=== PATIENT | female | born 1990 | race African-American/Black ===

== ENCOUNTER 2017-08-21 23:03 | Inpatient (IN) | payer OTHER ==
[~2017-08-21] VITALS: Ht 170.2 cm; Wt 71.7 kg
[2017-08-21] MEDS ORDERED: Sodium Chloride 500ML 500 ML IV ONE (23:46)
[2017-08-22] MEDS ORDERED: Morphine Sulfate 4mg/ml Inj IVP ONE
[2017-08-22 00:10] VITALS: BP 131/90
[2017-08-22 00:25] LABS: BASOPHILS % (AUTO) 1.4 % (0.0-2.0); EOSINOPHILS % (AUTO) 7.7 % (0.0-3.0); HEMATOCRIT 42.1 % (37.0-47.0); HEMOGLOBIN 14.2 G/DL (12.0-16.0); LYMPHOCYTES % (AUTO) 22.1 % (20.0-45.0); MEAN CORPUSCULAR VOLUME 87 FL (80-99); MONOCYTES % (AUTO) 7.2 % (1.0-10.0); NEUTROPHILS % (AUTO) 61.5 % (45.0-75.0); PLATELET COUNT 420 K/UL (150-450); RED BLOOD COUNT 4.82 M/UL (4.20-5.40); RED CELL DISTRIBUTION WIDTH 12.9 % (11.6-14.8)
[2017-08-22 00:27] LABS: BILIRUBIN, URINE NEGATIVE (NEGATIVE); COLOR,URINE PALE YELLOW; GLUCOSE, URINE (UA) NEGATIVE (NEGATIVE); KETONES,URINE NEGATIVE (NEGATIVE); LEUKOCYTE ESTERASE ,URINE 1+ (NEGATIVE); NITRITE,URINE NEGATIVE (NEGATIVE); PH,URINE 6 (4.5-8.0); PROTEIN,URINE 3+ (NEGATIVE); UROBILINOGEN,URINE 1 MG/DL (0.0-1.0)
[2017-08-22 00:38] LABS: ANION GAP 7 mmol/L (5-15); BLOOD UREA NITROGEN 5 mg/dL (7-18); CALCIUM 9.9 MG/DL (8.5-10.1); CARBON DIOXIDE 28 MMOL/L (21-32); CHLORIDE 100 MMOL/L (98-107); CREATININE 0.7 MG/DL (0.55-1.30); POTASSIUM 3.5 MMOL/L (3.5-5.1); SODIUM 135 MMOL/L (136-145)
[2017-08-22 00:42] LABS: APPEARANCE,URINE SLIGHTLY CLOUDY
[2017-08-22 00:43] LABS: ALANINE AMINOTRANSFERASE 14 U/L (12-78); ALBUMIN 4.1 G/DL (3.4-5.0); ALKALINE PHOSPHATASE 92 U/L (46-116); ASPARTATE AMINO TRANSFERASE 12 U/L (15-37); BILIRUBIN,TOTAL 0.2 MG/DL (0.2-1.0)
[2017-08-22 01:10] LABS: INR 0.9 (0.9-1.1)
[2017-08-22 01:58] VITALS: BP 125/86
[2017-08-22 04:00] VITALS: BP 119/74
--- NOTE | 2017-08-22 04:01 | Emergency Room Report ---
History of Present Illness General Chief Complaint: Abdominal Pain Source: Patient Present Illness HPI 27-year-old female presents ED for evaluation. Patient presenting with lower abdominal pain which started yesterday. Throbbing, 8/10, nonradiating. Patient states her period started a few days ago. Denies nausea or vomiting. Denies fevers chills. Denies any vaginal bleeding. Mother aggravating relieving factors. Denies any other associated symptoms Allergies: Coded Allergies: No Known Allergies (Unverified , 08/21/17) Patient History Past Medical History: none Past Surgical History: none Pertinent Family History: none Social History: Denies: smoking, alcohol use, drug use Last Menstrual Period: on period Now: No : 3 Immunizations: UTD Reviewed Nursing Documentation: PMH: Agreed, PSxH: Agreed Review of Systems All Other Systems: negative except mentioned in HPI Physical Exam Vital Signs Date Time Temp Pulse Resp B/P (MAP) Pulse Ox O2 Delivery O2 Flow Rate FiO2 08/21/17 23:25 98.0 94 18 131/87 98 Room Air 98.1 Sp02 EP Interpretation: reviewed, normal General Appearance: alert, GCS 15, non-toxic, mild distress Head: normocephalic, atraumatic Eyes: bilateral eye normal inspection, bilateral eye PERRL ENT: hearing grossly normal, normal pharynx, no angioedema, normal voice Neck: full range of motion, supple/symm/no masses Respiratory: chest non-tender, lungs clear, normal breath sounds, speaking full sentences Cardiovascular #1: regular rate, rhythm, no edema Cardiovascular #2: 2+ carotid (R), 2+ carotid (L), 2+ radial (R), 2+ radial (L) , 2+ dorsalis pedis (R), 2+ dorsalis pedis (L) Gastrointestinal: normal bowel sounds, soft, non-distended, no guarding, no rebound, tenderness Rectal: deferred Genitourinary: normal inspection, no CVA tenderness Musculoskeletal: back normal, gait/station normal, normal range of motion, non- tender Neurologic: alert, oriented x3, responsive, motor strength/tone normal, sensory intact, speech normal Psychiatric: judgement/insight normal, memory normal, mood/affect normal, no suicidal/homicidal ideation Reflexes: 3+ bicep (R), 3+ bicep (L), 3+ tricep (R), 3+ tricep (L), 3+ knee (R) , 3+ knee (L) Skin: normal color, no rash, warm/dry, well hydrated Lymphatic: no adenopathy Medical Decision Making Diagnostic Impression: Primary Impression: Ruptured ectopic ER Course Hospital Course 27-year-old female presents to ED with lower abdominal pain Differential diagnoses include: gastrits, gastroenterits, ectopic , ovarian torsion/cyst, UTI Clinical course Patient placed on stretcher in ED. After initial history and physical I ordered labs, pain meds, ultrasound. Labs-no leukocytosis, hb/hct stable electrolytes okay, beta hCG positive Pelvic ultrasound- no IUP, echogenic free fluid in pelvis near L adnexa. likely hemoperitoneum BHCG > 700 Patient made NPO. Discussed with OBGYN Dr Yoder, agreed to consult admitted to Dr Heredia Diagnosis - ruptured ectopic admitted in serious condition Labs Test 08/21/17 23:34 08/22/17 00:10 Urine Color Pale yellow Urine Appearance Slightly cloudy Urine pH 6 (4.5-8.0) Urine Specific [place] 1.025 (1.005-1.035) Urine Protein 3+ (NEGATIVE) Urine Glucose (UA) Negative (NEGATIVE) Urine Ketones Negative (NEGATIVE) Urine Occult Blood 5+ (NEGATIVE) Urine Nitrite Negative (NEGATIVE) Urine Bilirubin Negative (NEGATIVE) Urine Urobilinogen 1 MG/DL (0.0-1.0) Urine Leukocyte Esterase 1+ (NEGATIVE) Urine RBC Tntc /HPF (0 - 2) Urine WBC 2-4 /HPF (0 - 2) Urine Squamous Epithelial Cells Many /LPF (NONE/OCC) Urine Bacteria Few /HPF (NONE) Urine HCG, Qualitative Positive White Blood Count 9.0 K/UL (4.8-10.8) Red Blood Count 4.82 M/UL (4.20-5.40) Hemoglobin 14.2 G/DL (12.0-16.0) Hematocrit 42.1 % (37.0-47.0) Mean Corpuscular Volume 87 FL (80-99) Mean Corpuscular Hemoglobin 29.4 PG (27.0-31.0) Mean Corpuscular Hemoglobin Concent 33.7 G/DL (32.0-36.0) Red Cell Distribution Width 12.9 % (11.6-14.8) Platelet Count 420 K/UL (150-450) Mean Platelet Volume 6.3 FL (6.5-10.1) Neutrophils (%) (Auto) 61.5 % (45.0-75.0) Lymphocytes (%) (Auto) 22.1 % (20.0-45.0) Monocytes (%) (Auto) 7.2 % (1.0-10.0) Eosinophils (%) (Auto) 7.7 % (0.0-3.0) Basophils (%) (Auto) 1.4 % (0.0-2.0) Prothrombin Time 9.6 SEC (9.30-11.50) Prothromb Time International Ratio 0.9 (0.9-1.1) Activated Partial Thromboplast Time 27 SEC (23-33) Sodium Level 135 MMOL/L (136-145) Potassium Level 3.5 MMOL/L (3.5-5.1) Chloride Level 100 MMOL/L (98-107) Carbon Dioxide Level 28 MMOL/L (21-32) Anion Gap 7 mmol/L (5-15) Blood Urea Nitrogen 5 mg/dL (7-18) Creatinine 0.7 MG/DL (0.55-1.30) Estimat Glomerular Filtration Rate > 60 mL/min (>60) Glucose Level 103 MG/DL (74-106) Calcium Level 9.9 MG/DL (8.5-10.1) Total Bilirubin 0.2 MG/DL (0.2-1.0) Aspartate Amino Transf (AST/SGOT) 12 U/L (15-37) Alanine Aminotransferase (ALT/SGPT) 14 U/L (12-78) Alkaline Phosphatase 92 U/L (46-116) Total Protein 8.4 G/DL (6.4-8.2) Albumin 4.1 G/DL (3.4-5.0) Globulin 4.3 g/dL Albumin/Globulin Ratio 1.0 (1.0-2.7) Lipase 102 U/L (73-393) Human Chorionic Gonadotropin, Quant 794 mIU/mL (1-6) CT/MRI/US Diagnostic Results CT/MRI/US Diagnostic Results : Imaging Test Ordered: Pelvic US Impression Echogenic free fluid in the pelvis, particularly at the left adnexa, is likely due to a small amount of hemoperitoneum. Findings may be due to ruptured left adnexal ectopic versus ruptured left ovarian hemorrhagic cyst. Last Vital Signs Date Time Temp Pulse Resp B/P (MAP) Pulse Ox O2 Delivery O2 Flow Rate FiO2 08/22/17 01:58 97.8 69 16 125/86 96 Room Air 97.8 Status: improved Disposition: ADMITTED INPATIENT Condition: Serious Scripts No Active Prescriptions or Reported Meds Referrals: [facility],REFERRING (PCP) PARTH ESTEVEZ M.D. Aug 22, 2017 04:01
[2017-08-22] MEDS ORDERED: Meperidine 50mg/ml Inj(FOR RIGORS ONLY) IM ONE (05:00)
[2017-08-22 06:00] VITALS: BP 107/72
[2017-08-22] MEDS: LR 1000ml 1,000 ML IV SCH ×2 (06:43→14:00)
[2017-08-22 07:07] LABS: EOSINOPHILS % (AUTO) 7.5 % (0.0-3.0); HEMATOCRIT 36.9 % (37.0-47.0); HEMOGLOBIN 12.6 G/DL (12.0-16.0); LYMPHOCYTES % (AUTO) 20.4 % (20.0-45.0); MEAN CORPUSCULAR VOLUME 87 FL (80-99); MONOCYTES % (AUTO) 7.2 % (1.0-10.0); NEUTROPHILS % (AUTO) 63.9 % (45.0-75.0); PLATELET COUNT 379 K/UL (150-450); RED BLOOD COUNT 4.23 M/UL (4.20-5.40); RED CELL DISTRIBUTION WIDTH 12.9 % (11.6-14.8); WHITE BLOOD COUNT 10.1 K/UL (4.8-10.8)
[2017-08-22 08:00] VITALS: BP 114/71
[2017-08-22] MEDS ORDERED: Hydromorphone 0.5mg/0.5ml inj IVP PRN (08:30)
[2017-08-22] MEDS ORDERED: NS w/KCl 20mEq 1,000 ML IV SCH (09:00)
--- NOTE | 2017-08-22 10:18 | Diagnostic Imaging Report ---
Indication: Pain, positive test Technique: Transabdominal and transvaginal images Comparison: none Findings: The uterus is retroverted, measures 6.2 cm length by 4.1 cm AP. The endometrium measures 6 mm thick. No myometrial abnormality. The right ovary measures 3.5 cm in length. No right adnexal mass demonstrated. The left ovary is not optimally visualized, appears to measure approximately 4 cm in length. Within the cul-de-sac and adjacent to the left ovary, there is free fluid with low-level internal echoes. Questionable mass versus hematoma extends off of the left ovary Impression: No intrauterine visualized. Differential considerations include very early and therefore not yet visible , spontaneous , ectopic . Correlate with clinical findings and serial beta hCGs, consider follow-up sonography as indicated Free fluid with low level internal echoes in the cul-de-sac and left adnexal region, likely bloody. Possibilities include recent cyst rupture with hemorrhage, ruptured ectopic . Correlate with clinical findings. Suboptimal visualization of the left ovary. Possible left ovarian mass versus hematoma. Recommend follow-up sonography after resolution of acute symptoms. This agrees with the preliminary interpretation provided overnight by [facility] teleradiology service. Findings also reviewed in person with Dr. Paresh claros
[2017-08-22 12:00] VITALS: BP 113/69
[2017-08-22 12:28] LABS: BASOPHILS % (AUTO) 1.1 % (0.0-2.0); EOSINOPHILS % (AUTO) 7.1 % (0.0-3.0); HEMATOCRIT 41.3 % (37.0-47.0); HEMOGLOBIN 13.8 G/DL (12.0-16.0); LYMPHOCYTES % (AUTO) 19.2 % (20.0-45.0); MEAN CORPUSCULAR VOLUME 88 FL (80-99); MONOCYTES % (AUTO) 6.9 % (1.0-10.0); NEUTROPHILS % (AUTO) 65.7 % (45.0-75.0); PLATELET COUNT 384 K/UL (150-450); RED BLOOD COUNT 4.68 M/UL (4.20-5.40); RED CELL DISTRIBUTION WIDTH 13.4 % (11.6-14.8); WHITE BLOOD COUNT 9.2 K/UL (4.8-10.8)
--- NOTE | 2017-08-22 16:01 | History and Physical Report ---
DATE OF ADMISSION: 08/22/2017 HISTORY OF PRESENT ILLNESS: This is a 27-year-old female, who came to the ER for lower abdominal pain. She states her period started a few days ago. She denied nausea, vomiting, fever, or chills. She denies any vaginal bleeding. She was seen and worked up in the emergency room and noted to have evidence for a ruptured ectopic . Gynecology was consulted and I was asked to admit as operations architect. PAST MEDICAL HISTORY: Completely unremarkable. PREVIOUS SURGICAL HISTORY: Include x2 and previous appendectomy. HOME MEDICATIONS: None. SOCIAL HISTORY: The patient denies alcohol or tobacco usage. However, I note there is a strong odor in the room, suspicious of cannabis. The patient denies any headaches, hematemesis, melena, or hematochezia. PHYSICAL EXAMINATION: GENERAL: Reveals a young female. HEENT: Unremarkable. CHEST: Clear breath sounds bilaterally. ABDOMEN: Soft. EXTREMITIES: There is no edema. NEUROLOGIC: Nonfocal. LABORATORY AND DIAGNOSTIC DATA: Lab testing shows normal CBC. HCG is 794, which is high. Chemistries are normal. Coags are negative. Urinalysis shows too numerous to count RBC. Pelvic ultrasound shows no intrauterine . There is echogenic free fluid in the pelvis near the left adnexa likely hemoperitoneum. IMPRESSION: Ruptured ectopic . DISCUSSION: We will admit to the hospital. Keep NPO, IV fluids, pain medications, antiemetics, SCDs. We will again notify Gynecology regarding need for evaluation. Jefferson Heredia M.D. DR: TORIE JOB#: [id number] CC:
[2017-08-22] MEDS ORDERED: Flu Vaccine Quadrivalent 0.5ml IM ONE (16:30)
--- NOTE | 2017-08-22 22:45 | Consultation ---
DATE OF CONSULTATION: 08/22/2017 CONSULTING PHYSICIAN: Kishan Yoder M.D. HISTORY OF PRESENT ILLNESS: This is a 27-year-old female who presented to the emergency room with complaint of lower abdominal pain and discomfort and vaginal bleeding that started about 7 days prior to this admission. She describes the bleeding as period, however, the patient has history of irregular periods secondary to Depo Provera injection that she received 3-4 months prior to this admission. She denies nausea and vomiting. Denies fever or chills. Denies any other complaints. The patient was not aware that she was ; however, she desires to keep this should this be a normal . PAST GYNECOLOGICAL HISTORY: Significant for section x2. PAST MEDICAL HISTORY: Unremarkable. PAST SURGICAL HISTORY: section x2 and appendectomy. MEDICATIONS: None. PHYSICAL EXAMINATION: VITAL SIGNS: She is afebrile with stable vital signs. HEENT: Normocephalic and atraumatic. ABDOMEN: Soft, nontender, and nondistended. Some discomfort is noted in the lower part of the abdomen. BACK: No CVA tenderness. PELVIC: Normal external genitalia is noted. There is some blood noted in the vaginal vault. There is no adnexal tenderness. Some lower abdominal tenderness is noted. LABORATORY AND DIAGNOSTIC DATA: The patient underwent an ultrasound examination, a quantitative beta-HCG is 794. ASSESSMENT AND PLAN: This is a 27-year-old female who presented to the emergency room with complaint of vaginal bleeding and lower abdominal pain. I reviewed the ultrasound report with the radiologist. Ultrasound indicates a possible ovarian cyst; however, cannot rule out ectopic . No masses noted or appreciated in the adnexal region. I had a detailed discussion with the patient regarding above findings. The patient appears to be quite stable at this point with stable vital signs. Abdominal exam is unremarkable. We will follow the quantitative beta-HCG and a CBC differential diagnosis. The patient desires to continue the should this be a normal . Kishan Yoder M.D. DR: GRISELDA JOB#: [id number] CC:
--- NOTE | 2017-08-25 11:59 | Discharge Summary ---
Discharge Summary Hospital Course Date of Admission Aug 22, 2017 at 02:10 Date of Discharge Aug 22, 2017 at 17:50 Admitting Diagnosis ruptured ectopic JERICHO Samano is a 27 year old female who was admitted on Aug 22, 2017 at 02: 10 for Ruptured Ectopic Hospital Course dc summary #[id number] Discharge Condition Upon Discharge: stable Discharge Disposition Patient was discharged to Home (01) Discharge Diagnoses: Discharge Instructions Discharge Instructions Special Instructions I have been assigned to complete a D/C Summary on this account. I was not involved in the patient management Lindsey Nolan NP ([place]) Aug 25, 2017 11:59
--- NOTE | 2017-08-25 12:45 | Progress Note ---
DATE: 08/22/2017 SUBJECTIVE: The patient is without any complaints. Pain has significantly subsided. OBJECTIVE: HEENT: Normocephalic and atraumatic. ABDOMEN: Soft, nontender, and nondistended. BACK: No CVA tenderness. ASSESSMENT AND PLAN: This is a 27-year-old female with history of vaginal bleeding. The patient's vital signs are stable. Laboratory studies are also stable. I had a detailed discussion with the patient regarding findings. I discussed with the patient regarding differential diagnosis of intrauterine versus missed versus ectopic . The patient appears to be very stable. She does wish to continue with this should we see a normal . Options of management including surgical versus expectant management were discussed with the patient. The patient desires expectant management. The patient was advised to return to our office or her office on Friday. She will follow up with HCG and follow up ultrasound. I discussed with the patient regarding importance of followup. Risks and possible complications explained to her fully. The patient has been advised to follow to the emergency room with any complaints. fully, she understands, and will follow with advice. Kishan Yoder M.D. DR: YASIR JOB#: [id number] CC:
--- NOTE | 2017-08-25 18:00 | Discharge Summary 2 SIG ---
DATE OF ADMISSION: 08/22/2017 DATE OF DISCHARGE: 08/22/2017 REASON FOR ADMISSION: 27-year-old female came to emergency room complaining of abdominal pain and vaginal bleeding that started 7 days prior to this admission. The patient described bleeding as a period; however, the patient had a history of irregular periods secondary to Depo-Provera injection she received three to four months prior to this admission. She denied nausea, vomiting. No fever. No chills. Laboratory workup was unremarkable. HCG was elevated -t 794. Abdominal pelvic transvaginal ultrasound did not reveal any intrauterine ; free fluid with low level internal echoes in the cul-de-sac in the left adnexal region likely bloody, with possibility including recent cyst rupture with hemorrhage, can not rule out ruptured ectopic . Nikolas was admitted for further management with diagnosis of lower abdominal pain, vaginal bleeding , possible ovarian cyst, rule out ectopic HOSPITAL COURSE: The patient initially kept NPO, started on the IV fluids. Pain management provided. Antiemetic provided as needed. The patient was placed on SCDs. Gynecology consult was urgently requested. Water Quality Technician seen and evaluated the patient and closely reviewed transvaginal ultrasound. According to mix house operator, ultrasound indicated possible ovarian cyst but could not rule out ectopic . No masses were noted or appreciated in the adnexal region. Water Quality Technician had a detailed discussion with the patient regarding these findings. The patient appeared to be stable clinically with stable vital signs. Abdominal exam was unremarkable. Water Quality Technician cleared the patient for discharge and followup with the quantitative beta HCG and CBC as outpatient. The patient verbalized that if it would be a normal , she will be willing to continue it. The patient was stable for discharge. FINAL DIAGNOSES: 1. Lower abdominal pain 2. Vaginal bleeding. 3. Likely ruptured ovarian cyst 4. Cannot rule out ectopic . DISCHARGE INSTRUCTIONS: The patient was stable for discharge. Followup with the mix house operator for serial HCG monitoring. The patient was discharged home. Jefferson Heredia M.D. I have been assigned to dictate discharge summary on this account and I was not involved in the patient's management. Lindsey Nolan N.P. ([place]) DR: Edwina JOB#: [id number] CC: UNRULY
== END 2017-08-22 17:50 | disposition home or self-care (01) | DRG 566 ==
LOC: EMR 23:50 → 3E 08-22 02:10 → EDBEDREQ 08-22 04:01
DX: O00.90 Unspecified ectopic pregnancy without intrauterine pregnancy (principal); N83.202 Unspecified ovarian cyst, left side
CPT/HCPCS: 36415; 76830; 76856; 80053; 81003; 81025; 83690; 84702; 85025; 85610; 85730; 86850; 86900; 86901; 90630; 99285; J2405